=== PATIENT | male | born 1990 | race Caucasian/White ===

== ENCOUNTER 2021-10-28 16:31 | Emergency (ER) | payer OTHER, SELFPAY ==
[2021-10-28 16:45] VITALS: BP 146/94; PULSE 83; RESP 18; TEMP 36.7; O2SAT 98; BMI 26.6
--- NOTE | 2021-10-28 17:03 | EXP.UTC ---
Discharge Plan Disposition Patient Disposition: Home, Self-Care Condition: Good Prescriptions Prescriptions: New amoxicillin 875 mg tablet 875 mg PO BID 10 Days Qty: 20 0RF ibuprofen 800 mg tablet 800 mg PO TID PRN (Reason: pain) Qty: 30 0RF Referrals Follow up/Referrals: Provider,Referral, MD [Primary Care Provider] - See instructions Activity Restrictions/Add. Instructions Additional Instructions/Restrictions: Take medication as prescribed. Follow up with PCP and Dentist. Clinical Impressions Clinical Impression: Dental abscess Instructions Patient Instructions: DI for Tooth Abscess Discharge ED Provider: Romi Hudson [facility] General Stated complaint: dental pain Mode of Arrival: Ambulatory Source of Information: Patient Limitations: No Limitations Time Seen by Provider: 10/28/21 17:03 Description of Symptoms (Recalled from Triage Doc. by RN): PATIENT C/O SWELLING TO RIGHT SIDE OF FACE THAT STARTED LAST NIGHT. PATIENT REPORTS A BROKEN TOOTH ON THAT SAME SIDE HEENT Symptoms (Recalled from RN notes): Yes Resp Symptoms (Recalled from RN notes): No Skin Symptoms (Recalled from RN notes): No MS Symptoms (Recalled from RN notes): No Functional Status (Recalled from RN notes): WNL History of Present Illness Provider Complaint: Pt relates that he started having dental pain last night and woke up with the right side of his face swollen. He denies taking anything for his symptoms. Pt states that he has an appointment for the dentist, but his appointment keeps getting changed. Related Data Previous Rx's Medication Instructions Recorded amoxicillin 875 mg tablet 875 mg PO BID 10 days #20 tabs 10/28/21 ibuprofen 800 mg tablet 800 mg PO TID PRN pain #30 tabs 10/28/21 Allergies Allergy/AdvReac Type Severity Reaction Status Date / Time No Known Allergies Allergy Verified 10/28/21 17:01 Worker's Comp Is this a Worker's Comp case?: No [facility] Medical History (Updated 10/28/21 @ 17:17 by Romi Hudson ) No significant past medical history Social History (Updated 10/28/21 @ 17:00 by Sonya Bill RN) Smoking Status: Current every day smoker alcohol intake: never current occupational status: employed Travel in the last 8 weeks: None ROS Obtained: Yes All systems reviewed & no additional complaints except as documented Constitutional Constitutional: Reports system reviewed and no additional complaints, except as documented ENT Ears, Nose, Mouth, and Throat: Reports dental pain and Reports facial pain Cardiovascular Cardiovascular: Reports system reviewed and no additional complaints, except as documented Respiratory Respiratory: Reports system reviewed and no additional complaints, except as documented Gastrointestinal Gastrointestingal: Reports system reviewed and no additional complaints, except as documented Musculoskeletal Musculoskeletal: Reports system reviewed and no additional complaints, except as documented Integumentary/Breasts Skin/Breast: Reports system reviewed and no additional complaints, except as documented Physical Exam General General appearance: alert and in no apparent distress Eye Eye exam: Present normal appearance ENT ENT exam: Present other Expanded ENT Exam External ear exam: Present normal external inspection Nasal speculum exam: Bilateral: normal Teeth exam: Present dental caries, fractured tooth # (29), dental tenderness # (29) and gingival swelling Throat exam: Present normal inspection Respiratory Respiratory exam: Present normal lung sounds bilaterally and respiratory distress Cardiovascular Cardiovascular exam: Present regular rate and normal rhythm Abdominal Exam Abdominal exam: Present soft Neurological Exam Neurological exam: Present alert and oriented X3 Psychiatric Psychiatric exam: Present normal affect Medical Decision Making Tom Inquiry Pt receiving controlled substance: No Tom was queried for this pat
[2021-10-28 17:14] VITALS: BP 146/94; PULSE 83; RESP 18; TEMP 36.7; O2SAT 98
== END 2021-10-28 17:21 | disposition home or self-care (01) ==
PROVIDERS: Emergency Provider Nurse Practitioner Family
DX: K04.7 Periapical abscess without sinus (principal); K08.89 Other specified disorders of teeth and supporting structures
CPT/HCPCS: 99212; G0463